=== PATIENT | female | born 1960 | race Caucasian/White ===

== ENCOUNTER 2021-02-27 12:45 | Emergency (ER) | payer MEDICAID, OTHER ==
--- NOTE | 2021-02-27 14:40 | EDM.PDOC ---
ED HPI GENERAL MEDICAL PROBLEM - General Chief Complaint: Cardiovascular Problem Stated Complaint: HIGH BP, PAIN IN NECK AND BACK OF HEAD Time Seen by Provider: 02/27/21 14:25 Source of Information: Reports: Patient. Denies: Old Records History Limitations: Reports: Other (limited records) - History of Present Illness INITIAL COMMENTS - FREE TEXT/NARRATIVE: 60 yo female presents at the recommendation of her primary care provider for elevated BP(gradually climbing for 3 weeks) and now today a LEONARDO. Her BP was in the upper 130's when seen in the clinic about 3 weeks ago. Usually goes to for her care, but works in [place] and was here when she called her primary about her sx's so came here. No CP. No fever or nausea. No diaphoresis. Onset: Gradual Duration: Week(s): (BP rise x 3 weeks. ), Other (LEONARDO new today) Location: Reports: Head Quality: Reports: Ache Severity: Mild Improves with: Reports: None Worsens with: Reports: Other (time) Context: Reports: Other (See HPI) Associated Symptoms: Reports: Headaches. 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) - Related Data Allergies Allergy/AdvReac Type Severity Reaction Status Date / Time ketorolac tromethamine Allergy Blisters Verified 09/12/13 08:23 [From Toradol] Home Meds: Home Meds Celecoxib [CeleBREX] 50 mg PO BID 02/27/21 [History] Cyclobenzaprine [Flexeril] 10 mg PO DAILY 02/27/21 [History] Losartan [Cozaar] 50 mg PO DAILY 02/27/21 [History] Omeprazole 20 mg PO DAILY 02/27/21 [History] Simvastatin 10 mg PO DAILY 02/27/21 [History] estradioL [Estradiol] 0.5 mg PO DAILY 02/27/21 [History] ED ROS GENERAL - Review of Systems Review Of Systems: See Below Constitutional: Reports: No Symptoms HEENT: Reports: No Symptoms Respiratory: Reports: No Symptoms Cardiovascular: Reports: No Symptoms. Denies: Chest Pain Endocrine: Reports: No Symptoms GI/Abdominal: Reports: No Symptoms : Reports: No Symptoms Musculoskeletal: Reports: Neck Pain (mild, chronic) Skin: Reports: No Symptoms Neurological: Reports: Headache ED EXAM, GENERAL - Physical Exam Exam: See Below Exam Limited By: No Limitations General Appearance: Alert, WD/WN, No Apparent Distress Eye Exam: Bilateral Eye: Normal Inspection Ears: Normal External Exam, Normal Canal, Hearing Grossly Normal Ear Exam: Bilateral Ear: Auricle Normal, Canal Normal Nose: Normal Inspection, No Blood Throat/Mouth: Normal Inspection, Normal Lips, Normal Oropharynx, Normal Voice, No Airway Compromise Head: Atraumatic, Normocephalic Neck: Normal Inspection Respiratory/Chest: No Respiratory Distress, Lungs Clear, Normal Breath Sounds, No Accessory Muscle Use GI/Abdominal: Normal Bowel Sounds, Soft, Non-Tender, No Distention Extremities: Normal Inspection, Normal Range of Motion, Non-Tender, No Pedal Edema Neurological: Alert, Oriented, CN II-XII Intact, Normal Cognition, No Motor/Sensory Deficits Psychiatric: Normal Affect, Normal Mood Skin Exam: Warm, Dry, Intact, Normal Color, No Rash Course - Vital Signs Last Recorded V/S: Last Vital Signs Temp 36.0 C L 02/27/21 15:04 Pulse 62 02/27/21 15:52 Resp 13 02/27/21 15:52 BP 172/90 H 02/27/21 15:52 Pulse Ox 92 L 02/27/21 15:52 - Orders/Labs/Meds Orders: Active Orders 24 hr Category Date Time Status EKG 12 Lead [EK] Routine Ther 02/27/21 12:57 Stop Req Labs: Laboratory Tests 02/27/21 Range/Units 14:42 Sodium 142 (140-148) mmol/L Potassium 3.6 (3.6-5.2) mmol/L Chloride 104 (100-108) mmol/L Carbon Dioxide 29 (21-32) mmol/L Anion Gap 9.3 (5.0-14.0) mmol/L BUN 16 (7-18) mg/dL Creatinine 0.8 (0.6-1.0) mg/dL Est Cr Clr Drug Dosing 74.49 mL/min Estimated GFR (MDRD) > 60 (>60) Glucose 91 (74-106) mg/dL Calcium 10.4 H (8.5-10.1) mg/dL Troponin I < 0.017 (0.000-0.056) ng/mL Meds: Medications Discontinued Medications Generic Name Dose Route Start Last Admin Trade Name Freq PRN Reason Stop Dose Admin Clonidine HCl 0.1 mg 02/27/21 14:41 02/27/21 15:09 Clonidine 0.1 Mg Tab PO 02/27/21 14:42 0.1 mg ONETIME ONE Administration Hydrochlorothiazide 25 mg 02/27/21 14:42 02/27/21 15:09 Hydrochlorothiazide 25 Mg Tab PO 02/27/21 14:43 25 mg ONETIME ONE Administration Losartan Potassium 50 mg 02/27/21 14:41 02/27/21 15:09 Losartan 50 Mg Tab PO 02/27/21 14:42 50 mg ONETIME ONE Administration - Re-Assessments/Exams Free Text/Narrative Re-Assessment/Exam: 02/27/21 16:05 BP down to 170 systolic after our interventions. 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 Avoid salt or salty foods. Recheck with your provider tomorrow. Sepsis Event Note (ED) - Focused Exam Vital Signs: Vital Signs Temp Pulse Resp BP BP Pulse Ox 02/27/21 15:52 62 13 172/90 H 92 L 02/27/21 15:09 170/87 H 02/27/21 15:04 36.0 C L 80 12 191/100 H 95 - My Orders Last 24 Hours: My Active Orders 02/27/21 12:57 EKG 12 Lead [EK] Routine - Assessment/Plan Last 24 Hours: My Active Orders 02/27/21 12:57 EKG 12 Lead [EK] Routine
[2021-02-27] MEDS ORDERED: Losartan 50 MG Tab PO ONE (14:41)
[2021-02-27] MEDS ORDERED: cloNIDine 0.1 MG Tab PO ONE (14:41)
[2021-02-27] MEDS ORDERED: Hydrochlorothiazide 25 MG Tab PO ONE (14:42)
== END 2021-02-27 16:12 | disposition home or self-care (01) ==
LOC: JP.ED 12:45
DX: I10 Essential (primary) hypertension (principal); Z79.899 Other long term (current) drug therapy; Z88.6 Allergy status to analgesic agent
CPT/HCPCS: 36415; 80048; 84484; 99284; A9270; 99283